=== PATIENT | female | born 1940 | race Caucasian/White ===

== ENCOUNTER 2016-12-28 20:27 | Inpatient (IN) | payer OTHER ==
[~2016-12-28] VITALS: Ht 157.5 cm; Wt 85.2 kg
--- NOTE | 2016-12-29 00:02 | DIAGNOSTIC IMAGING REPORT ---
PROCEDURE: XR RIBS UNILAT W/PA CHEST-RT INDICATION: TRAUMA/INJURY TECHNIQUE: Two views of the right ribs with single PA view chest. COMPARISON: None. FINDINGS: RIGHT RIBS: Probable nondisplaced fracture of the right lateral tenth rib. The rest of the right ribs are normal. CHEST: Lungs are clear. Heart and mediastinum are normal. There are multiple surgical clips in the epigastric region and right upper quadrant (suggest prior gastroplasty and cholecystectomy). Mild to moderate degenerative change of the thoracic spine. IMPRESSION: 1. Probable fracture of the right lateral tenth rib. 2. Probable gastroplasty and cholecystectomy. 3. Otherwise negative chest. 4. Findings discussed with Dr. Alex Orourke.
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
--- NOTE | 2016-12-29 01:16 | ED ORDER SUMMARY ---
..... Patient: JAYCE VANG OrderSheet [facility] VisitID: [id number] [place] [address] 76y, F Registration Date/Time: 12/28/2016 ORDER SHEET Weight: 81.6 kg (estimated) Allergies: Shellfish-derived Products, Prozac, Zoloft GENERAL ORDERS: CBC w Diff Urgent (21:12/28/2016 Petrona Chen) (Ack 21:30 SRedmond) (22:10 EHassan R.N.) CMP Urgent (:12/28/2016 Petrona Chen) (Ack 21:30 SRedmond) (22:10 EHassan R.N.) UA-Culture if indicated Urgent (:12/28/2016 Petrona Chen) (Ack 21:30 SRedmond) (22:24 EHassan R.N.) PT with INR Urgent (:12/28/2016 Petrona Chen) (Ack 21:30 SRedmond) (22:10 EHassan R.N.) Urine Drug Screen Urgent (:12/28/2016 Petrona Chen) (Ack 21:30 SRedmond) (22:24 EHassan R.N.) TSH Urgent (21:12/28/2016 Petrona Chen) (Ack 21:30 SRedmond) (22:10 EHassan R.N.) Acetaminophen Level Urgent (21:12/28/2016 Petrona Chen) (Ack 21:30 SRedmond) (22:10 EHassan R.N.) Salicylate Level Urgent (:12/28/2016 Petrona Chen) (Ack 21:30 SRedmond) (22:10 EHassan R.N.) Ethyl Alcohol Urgent (:12/28/2016 Petrona Chen) (Ack 21:30 SRedmond) (22:10 EHassan R.N.) Pulse oximeter (21:12/28/2016 Petrona Chen) (Ack 21:30 SRedmond) (22:10 EHassan R.N.) Ribs Unilat w PA Chest Right Urgent (22:12 12/28/2016 Petrona Chen) (Ack 22:33 SRedmond) (22:50 MCabell) MEDICATION ORDERS: IV FLUIDS: IV Saline Lock (21:14 12/28/2016 Petrona Chen) (22:10 EHassamayelin R.N.) IV NS : initial bolus 1000 mL (1000 mL/hr), then none - for X1 (NOW) (22:11 12/28/2016 Petrona Chen) (22:21 EHassamayelin R.N.) Ceftriaxone IV 2 gm/50mL (NOW) (00:06 12/29/2016 Petrona Chen) (0:15 TBowtonie R.N.) Ativan IV 1 mg (HIGH ALERT MEDICATION, NOW) (01:50 12/29/2016 Petrona Chen) (1:55 TBowen R.N.) ORDER SHEET NOTES: [Electronically signed by Annette Yoo R.N. (02:03 12/29/2016)] [Electronically signed by Alex Orourke Dr. (21:45 01/02/2017)] [Electronically locked/signed by Annette Yoo R.N. (02:03 12/29/2016)]
--- NOTE | 2016-12-29 01:16 | ED ORDER SUMMARY ---
..... Patient: JAYCE VANG OrderSheet [facility] VisitID: [id number] [place] [address] 76y, F Registration Date/Time: 12/28/2016 ORDER SHEET Weight: 81.6 kg (estimated) Allergies: Shellfish-derived Products, Prozac, Zoloft GENERAL ORDERS: CBC w Diff Urgent (21:12/28/2016 Petrona Chen) (Ack 21:30 SRedmond) (22:10 EHassan R.N.) CMP Urgent (:12/28/2016 Petrona Chen) (Ack 21:30 SRedmond) (22:10 EHassan R.N.) UA-Culture if indicated Urgent (:12/28/2016 Petrona Chen) (Ack 21:30 SRedmond) (22:24 EHassan R.N.) PT with INR Urgent (:12/28/2016 Petrona Chen) (Ack 21:30 SRedmond) (22:10 EHassan R.N.) Urine Drug Screen Urgent (:12/28/2016 Petrona Chen) (Ack 21:30 SRedmond) (22:24 EHassan R.N.) TSH Urgent (21:12/28/2016 Petrona Chen) (Ack 21:30 SRedmond) (22:10 EHassan R.N.) Acetaminophen Level Urgent (21:12/28/2016 Petrona Chen) (Ack 21:30 SRedmond) (22:10 EHassan R.N.) Salicylate Level Urgent (:12/28/2016 Petrona Chen) (Ack 21:30 SRedmond) (22:10 EHassan R.N.) Ethyl Alcohol Urgent (:12/28/2016 Petrona Chen) (Ack 21:30 SRedmond) (22:10 EHassan R.N.) Pulse oximeter (21:12/28/2016 Petrona Chen) (Ack 21:30 SRedmond) (22:10 EHassan R.N.) Ribs Unilat w PA Chest Right Urgent (22:12 12/28/2016 Petrona Chen) (Ack 22:33 SRedmond) (22:50 MCabell) MEDICATION ORDERS: IV FLUIDS: IV Saline Lock (21:14 12/28/2016 Petrona Chen) (22:10 EHassamayelin R.N.) IV NS : initial bolus 1000 mL (1000 mL/hr), then none - for X1 (NOW) (22:11 12/28/2016 Petrona Chen) (22:21 EHassamayelin R.N.) Ceftriaxone IV 2 gm/50mL (NOW) (00:06 12/29/2016 Petrona Chen) (0:15 TBowtonie R.N.) Ativan IV 1 mg (HIGH ALERT MEDICATION, NOW) (01:50 12/29/2016 Petrona Chen) (1:55 TBowen R.N.) ORDER SHEET NOTES: [Electronically signed by Annette Yoo R.N. (02:03 12/29/2016)] [Electronically signed by Alex Orourke Dr. (21:45 01/02/2017)] [Electronically locked/signed by Annette Yoo R.N. (02:03 12/29/2016)]
--- NOTE | 2016-12-29 01:16 | ED CLINICAL REPORT ---
Clinical Report - Physicians/Mid Levels [facility] [address] [place] [address] 12/28/2016 20:28 Patient: JAYCE VANG Time Seen: 2100. Arrived- By private vehicle. Historian- patient and family. Referred by patient's family. HISTORY OF PRESENT ILLNESS Chief Complaint: DEPRESSED and SUICIDAL ATTEMPT. This started today. Has not been eating or sleeping. Has been depressed and exhibited unusual behavior. The symptoms are described as severe. No injury is present. Additional history - recent decline in mood over the past month. friends have recently. Similar symptoms previously: Recent medical care: The patient was seen recently by a health care provider. REVIEW OF SYSTEMS No headache. All systems otherwise negative, except as recorded above. PAST HISTORY See nurses notes. Medications: Nitrofurantoin Oral. Lisinopril Oral. Atorvastatin Calcium Oral. Nyamyc External (Powder [id number] unit/gm). MetFORMIN HCl Oral (Tablet 500 mg) 1 tablet, daily. QUEtiapine Fumarate ER Oral 50mg. Citalopram Hydrobromide Oral (Tablet 20 mg) 1 tablet. BusPIRone HCl Oral 30 mg, 2x a day. Allergies: Prozac. Shellfish-derived Products. Zoloft. SOCIAL HISTORY Alcohol use. No drug use. Has social support. Has place to stay. ADDITIONAL NOTES The nursing notes have been reviewed. PHYSICAL EXAM Vital Signs: 12/28/2016 20:45 BP: 104/56. HR: 96. RR: 16. O2 saturation: 98%. Temp: 98.3 F. Pain level now: 0/10. Blood pressure normal. Oxygen saturation normal. Appearance: Alert. No acute distress. Appearance is normal. Anxious. Eyes: Pupils equal, round and reactive to light. Neck: Normal inspection. Neck supple. CVS: Normal heart rate and rhythm. Heart sounds normal. Respiratory: Breath sounds normal. Chest nontender. Abdomen: Soft and nontender. Skin: Skin warm and dry. Normal skin color. Normal skin turgor. Extremities: Extremities exhibit normal ROM. No lower extremity edema. Psych / Neuro: (affect congruent). Speech normal. Thought process and content normal. Insight and judgement normal. Cranial nerves normal (as tested). No cerebellar findings. No motor deficit. No sensory deficit. Reflexes normal. LABS, X-RAYS, AND EKG Sternum / Ribs X-rays: Normal lung markings present. (possible right 10th rib fracture). The X-rays were independently viewed by me and interpreted by the radiologist. The X-rays were discussed with the radiologist (via pacs an phone). Laboratory Tests: UA-Culture if indicated: (ONIEL: 12/28/2016 23:20) ( [facility] 12/28/2016 23:40) Final results Test Result Flag Units (Reference) URINE COLOR YELLOW URINE APPEARANCE CLEAR URINE GLUCOSE NEGATIVE (NEGATIVE) URINE BILIRUBIN 2+ (NEGATIVE) URINE KETONE 1+ (NEGATIVE) URINE SPECIFIC GRAVITY >= 1.030 (1.010-1.030) URINE PH 5.5 (5.0-8.0) URINE PROTEIN 1+ (NEGATIVE) URINE UROBILINOGEN 0.2 EU/dL (0.2-1.0) URINE NITRITE NEGATIVE (NEGATIVE) URINE BLOOD 2+ (NEGATIVE) URINE LEUK ESTERASE POSITIVE (NEGATIVE) URINE RBC >100 rbc/hpf (0-1) URINE WBC >100 wbc/hpf (0-1) URINE EPITHELIAL CELLS 0-1 EPI/hpf (0-5) URINE BACTERIA MANY (4+) (NONE SEEN) URINE COMMENT CULTURE INDICATED URINE CULTURES ARE SET-UP BASED ON THE FOLLOWING CRITERIA:POSITIVE NITRITEPOSITIVE LEUKOCYTE ESTERASEGREATER THAN 10 WHITE BLOOD CELLSMODERATE (2+) OR GREATER BACTERIA CBC w Diff: (ONIEL: 12/28/2016 22:10) ( [facility] 12/28/2016 22:19) Final results Test Result Flag Units (Reference) WHITE BLOOD COUNT 13.3 H K/uL (4.5-11.5) RED BLOOD COUNT 4.23 M/uL (4.00-5.20) HEMOGLOBIN 11.8 L gm/dL (12.0-16.0) HEMATOCRIT 35.6 L % (36.0-46.0) MEAN CELL VOLUME 84 fL (80-100) MEAN CORPUSCULAR HGB 28 pg (26-34) MEAN CORPUSCULAR HGB CONC 33 g/dL (31-37) RED CELL DISTRIBUTION WIDTH 14.8 % (11.6-14.8) PLATELET COUNT 334 K/uL (150-400) NEUTROPHIL % 73.3 % (50-75) LYMPH % 20.0 L % (25-40) MONO % 6.0 % (3-14) EOSINOPHIL % 0.4 % (0-4) BASOPHIL % 0.3 % (0-2) PT with INR: (ONIEL: 12/28/2016 22:10) ( [facility] 12/28/2016 22:28) Final results Test Result Flag Units (Reference) INR 1.0 (0.8-1.2) Low Intensity Therapy: INR 1.5-2.0 PT range 18.5-23.1Mod.Intensity Therapy: INR 2.0-3.0 PT range 23.1-31.5High Intensity Therapy: INR 2.5-3.5 PT range 27.4-35.5High Intensity Therapy 2: INR 3.0-4.0 PT range 31.5-39.3 Urine Drug Screen: (ONIEL: 12/28/2016 23:20) ( TngRcvd 12/28/2016 23:41) Final results Test Result Flag Units (Reference) AMPHETAMINE/METHAMPHETAMINE NEGATIVE (NEGATIVE) BARBITURATE NEGATIVE (NEGATIVE) BENZODIAZEPINE NEGATIVE (NEGATIVE) CANNABINOID POSITIVE H (NEGATIVE) COCAINE NEGATIVE (NEGATIVE) ECSTASY NEGATIVE (NEGATIVE) METHADONE NEGATIVE (NEGATIVE) OPIATE NEGATIVE (NEGATIVE) The urine drug screen is a qualitative screening test fordrug overdose and abuse. All screen results should beconsidered as presumptive.Drugs screened for are as follows:BenzodiazepinesCocaineAmphetamines/MetamphetaminesTHC (Tetrahydrocannabinol)OpiatesBarbituratesEcstasyMethadonePositive results are unconfirmed. For confirmation, notifythe lab for the specimen to be sent to the reference lab.All confirmations must be performed by a differentmethodology.The ingestion of natural herbal and plant productscontaining Ephedra/Ephedra metabolites can produce in urineone or more substances capable of cross reacting withamphetamine/methamphetamine immunoassays. These testsprovide a preliminary result only. A more specificalternative chemical method must be used to obtain aconfirmed analytical result. Salicylate Level: (ONIEL: 12/28/2016 22:10) ( MsgRcvd 12/28/2016 22:26) Final results Test Result Flag Units (Reference) SALICYLATE <2.8 L mg/dL (2.8-20) CMP: (ONIEL: 12/28/2016 22:10) ( MsgRcvd 12/28/2016 22:44) Final results Test Result Flag Units (Reference) GLUCOSE 134 H mg/dL (70-110) BUN 39 H mg/dL (7-18) CREATININE 1.6 H mg/dL (0.6-1.3) Estimated GFR 33.49 mL/min Estimated GFR- 40.59 mL/min Note: Persistent reduction over 3 months in eGFR<60 mL/min/1.73 m2 defines CKD. Patients with eGFR values>=60 mL/min/1.73 m2 may also have CKD if evidence ofpersistent proteinuria. Additional information may be foundat www.[email or web address].org. SODIUM 137 mmol/L (136-145) POTASSIUM 4.2 mmol/L (3.5-5.1) CHLORIDE 100 mmol/L (98-107) CARBON DIOXIDE 25 mmol/L (21-32) CALCIUM 8.8 mg/dL (8.5-10.1) TOTAL PROTEIN 6.7 g/dL (6.4-8.2) ALBUMIN 3.4 g/dL (3.3-5.0) BILIRUBIN, TOTAL 0.4 mg/dL (0.0-1.0) ALKALINE PHOSPHATASE 65 U/L (46-116) AST (SGOT) 34 U/L (15-37) ALT (SGPT) 57 U/L (12-78) ACETAMINOPHEN < 3 L ug/mL (10-30) ETHYL ALCOHOL <3 L mg/dL (3-10) THYROID STIMULATING HORMONE 1.123 uIU/mL (0.30-3.74) . PROGRESS AND PROCEDURES Course of Care: The patient is a 76 yo female presenting for evaluation of altered mental status and SI. patient not as baseline per family and has changed over the past 2 months or less. Patient with recent admit for UTI. Patient reportedly taking abx but family not entirely sure she she has been doing it. No other acute findings. No signs of trauma. WIll also evalaute if patient needs a psych evaluation. Family and patient are agreeable to work up. Family also concerned about right rib pain from last admit. Patient apparently was helped to the floor on last admit. Small area of ecchymosis. No other findings. Patient with regular respirations. Work up shows patient with significant UTI. Abx given. Because of time course of mental changes, feel patient's conditions primarily due to UTI. There is some possible dementia and situational problems with friends passing away however the UTI is however, significant. Psych was here evaluating another patient and stated they would also need the urine treated if they were to consider the patient for admission. Discussed with patient and family workup, diagnosis, and plan of care. All questions answered. Because the patient has otherwise normal vital signs, patient is stable for the floor. Does not need ICU level of care. Discussed case with hospitalist who will accept the patient. No further recs. Critical care performed (35 minutes). Time is exclusive of separately billable procedures. Time includes: direct patient care, patient reassessment, coordination of patient care, interpretation of data (laboratory data), review of patient's medical records, medical consultation, family consultation regarding treatment decisions and documentation of patient care. Disposition: Admitted to Acute Care. CLINICAL IMPRESSION Non-displaced closed 10th rib fracture altered mental status Urinary tract infection. (Electronically signed by Alex Orourke Dr. 01/02/2017 21:45)
--- NOTE | 2016-12-29 01:16 | ED CLINICAL REPORT ---
Clinical Report - Physicians/Mid Levels [facility] [address] [place] [address] 12/28/2016 20:28 Patient: JAYCE VANG Time Seen: 2100. Arrived- By private vehicle. Historian- patient and family. Referred by patient's family. HISTORY OF PRESENT ILLNESS Chief Complaint: DEPRESSED and SUICIDAL ATTEMPT. This started today. Has not been eating or sleeping. Has been depressed and exhibited unusual behavior. The symptoms are described as severe. No injury is present. Additional history - recent decline in mood over the past month. friends have recently. Similar symptoms previously: Recent medical care: The patient was seen recently by a health care provider. REVIEW OF SYSTEMS No headache. All systems otherwise negative, except as recorded above. PAST HISTORY See nurses notes. Medications: Nitrofurantoin Oral. Lisinopril Oral. Atorvastatin Calcium Oral. Nyamyc External (Powder 203208 unit/gm). MetFORMIN HCl Oral (Tablet 500 mg) 1 tablet, daily. QUEtiapine Fumarate ER Oral 50mg. Citalopram Hydrobromide Oral (Tablet 20 mg) 1 tablet. BusPIRone HCl Oral 30 mg, 2x a day. Allergies: Prozac. Shellfish-derived Products. Zoloft. SOCIAL HISTORY Alcohol use. No drug use. Has social support. Has place to stay. ADDITIONAL NOTES The nursing notes have been reviewed. PHYSICAL EXAM Vital Signs: 12/28/2016 20:45 BP: 104/56. HR: 96. RR: 16. O2 saturation: 98%. Temp: 98.3 F. Pain level now: 0/10. Blood pressure normal. Oxygen saturation normal. Appearance: Alert. No acute distress. Appearance is normal. Anxious. Eyes: Pupils equal, round and reactive to light. Neck: Normal inspection. Neck supple. CVS: Normal heart rate and rhythm. Heart sounds normal. Respiratory: Breath sounds normal. Chest nontender. Abdomen: Soft and nontender. Skin: Skin warm and dry. Normal skin color. Normal skin turgor. Extremities: Extremities exhibit normal ROM. No lower extremity edema. Psych / Neuro: (affect congruent). Speech normal. Thought process and content normal. Insight and judgement normal. Cranial nerves normal (as tested). No cerebellar findings. No motor deficit. No sensory deficit. Reflexes normal. LABS, X-RAYS, AND EKG Sternum / Ribs X-rays: Normal lung markings present. (possible right 10th rib fracture). The X-rays were independently viewed by me and interpreted by the radiologist. The X-rays were discussed with the radiologist (via pacs an phone). Laboratory Tests: UA-Culture if indicated: (ONIEL: 12/28/2016 23:20) ( [facility] 12/28/2016 23:40) Final results Test Result Flag Units (Reference) URINE COLOR YELLOW URINE APPEARANCE CLEAR URINE GLUCOSE NEGATIVE (NEGATIVE) URINE BILIRUBIN 2+ (NEGATIVE) URINE KETONE 1+ (NEGATIVE) URINE SPECIFIC GRAVITY >= 1.030 (1.010-1.030) URINE PH 5.5 (5.0-8.0) URINE PROTEIN 1+ (NEGATIVE) URINE UROBILINOGEN 0.2 EU/dL (0.2-1.0) URINE NITRITE NEGATIVE (NEGATIVE) URINE BLOOD 2+ (NEGATIVE) URINE LEUK ESTERASE POSITIVE (NEGATIVE) URINE RBC >100 rbc/hpf (0-1) URINE WBC >100 wbc/hpf (0-1) URINE EPITHELIAL CELLS 0-1 EPI/hpf (0-5) URINE BACTERIA MANY (4+) (NONE SEEN) URINE COMMENT CULTURE INDICATED URINE CULTURES ARE SET-UP BASED ON THE FOLLOWING CRITERIA:POSITIVE NITRITEPOSITIVE LEUKOCYTE ESTERASEGREATER THAN 10 WHITE BLOOD CELLSMODERATE (2+) OR GREATER BACTERIA CBC w Diff: (ONIEL: 12/28/2016 22:10) ( [facility] 12/28/2016 22:19) Final results Test Result Flag Units (Reference) WHITE BLOOD COUNT 13.3 H K/uL (4.5-11.5) RED BLOOD COUNT 4.23 M/uL (4.00-5.20) HEMOGLOBIN 11.8 L gm/dL (12.0-16.0) HEMATOCRIT 35.6 L % (36.0-46.0) MEAN CELL VOLUME 84 fL (80-100) MEAN CORPUSCULAR HGB 28 pg (26-34) MEAN CORPUSCULAR HGB CONC 33 g/dL (31-37) RED CELL DISTRIBUTION WIDTH 14.8 % (11.6-14.8) PLATELET COUNT 334 K/uL (150-400) NEUTROPHIL % 73.3 % (50-75) LYMPH % 20.0 L % (25-40) MONO % 6.0 % (3-14) EOSINOPHIL % 0.4 % (0-4) BASOPHIL % 0.3 % (0-2) PT with INR: (ONIEL: 12/28/2016 22:10) ( WygRcvd 12/28/2016 22:28) Final results Test Result Flag Units (Reference) INR 1.0 (0.8-1.2) Low Intensity Therapy: INR 1.5-2.0 PT range 18.5-23.1Mod.Intensity Therapy: INR 2.0-3.0 PT range 23.1-31.5High Intensity Therapy: INR 2.5-3.5 PT range 27.4-35.5High Intensity Therapy 2: INR 3.0-4.0 PT range 31.5-39.3 Urine Drug Screen: (ONIEL: 12/28/2016 23:20) ( WygRcvd 12/28/2016 23:41) Final results Test Result Flag Units (Reference) AMPHETAMINE/METHAMPHETAMINE NEGATIVE (NEGATIVE) BARBITURATE NEGATIVE (NEGATIVE) BENZODIAZEPINE NEGATIVE (NEGATIVE) CANNABINOID POSITIVE H (NEGATIVE) COCAINE NEGATIVE (NEGATIVE) ECSTASY NEGATIVE (NEGATIVE) METHADONE NEGATIVE (NEGATIVE) OPIATE NEGATIVE (NEGATIVE) The urine drug screen is a qualitative screening test fordrug overdose and abuse. All screen results should beconsidered as presumptive.Drugs screened for are as follows:BenzodiazepinesCocaineAmphetamines/MetamphetaminesTHC (Tetrahydrocannabinol)OpiatesBarbituratesEcstasyMethadonePositive results are unconfirmed. For confirmation, notifythe lab for the specimen to be sent to the reference lab.All confirmations must be performed by a differentmethodology.The ingestion of natural herbal and plant productscontaining Ephedra/Ephedra metabolites can produce in urineone or more substances capable of cross reacting withamphetamine/methamphetamine immunoassays. These testsprovide a preliminary result only. A more specificalternative chemical method must be used to obtain aconfirmed analytical result. Salicylate Level: (ONIEL: 12/28/2016 22:10) ( MsgRcvd 12/28/2016 22:26) Final results Test Result Flag Units (Reference) SALICYLATE <2.8 L mg/dL (2.8-20) CMP: (ONIEL: 12/28/2016 22:10) ( MsgRcvd 12/28/2016 22:44) Final results Test Result Flag Units (Reference) GLUCOSE 134 H mg/dL (70-110) BUN 39 H mg/dL (7-18) CREATININE 1.6 H mg/dL (0.6-1.3) Estimated GFR 33.49 mL/min Estimated GFR- 40.59 mL/min Note: Persistent reduction over 3 months in eGFR<60 mL/min/1.73 m2 defines CKD. Patients with eGFR values>=60 mL/min/1.73 m2 may also have CKD if evidence ofpersistent proteinuria. Additional information may be foundat [email or web address].org. SODIUM 137 mmol/L (136-145) POTASSIUM 4.2 mmol/L (3.5-5.1) CHLORIDE 100 mmol/L (98-107) CARBON DIOXIDE 25 mmol/L (21-32) CALCIUM 8.8 mg/dL (8.5-10.1) TOTAL PROTEIN 6.7 g/dL (6.4-8.2) ALBUMIN 3.4 g/dL (3.3-5.0) BILIRUBIN, TOTAL 0.4 mg/dL (0.0-1.0) ALKALINE PHOSPHATASE 65 U/L (46-116) AST (SGOT) 34 U/L (15-37) ALT (SGPT) 57 U/L (12-78) ACETAMINOPHEN < 3 L ug/mL (10-30) ETHYL ALCOHOL <3 L mg/dL (3-10) THYROID STIMULATING HORMONE 1.123 uIU/mL (0.30-3.74) . PROGRESS AND PROCEDURES Course of Care: The patient is a 76 yo female presenting for evaluation of altered mental status and SI. patient not as baseline per family and has changed over the past 2 months or less. Patient with recent admit for UTI. Patient reportedly taking abx but family not entirely sure she she has been doing it. No other acute findings. No signs of trauma. WIll also evalaute if patient needs a psych evaluation. Family and patient are agreeable to work up. Family also concerned about right rib pain from last admit. Patient apparently was helped to the floor on last admit. Small area of ecchymosis. No other findings. Patient with regular respirations. Work up shows patient with significant UTI. Abx given. Because of time course of mental changes, feel patient's conditions primarily due to UTI. There is some possible dementia and situational problems with friends passing away however the UTI is however, significant. Psych was here evaluating another patient and stated they would also need the urine treated if they were to consider the patient for admission. Discussed with patient and family workup, diagnosis, and plan of care. All questions answered. Because the patient has otherwise normal vital signs, patient is stable for the floor. Does not need ICU level of care. Discussed case with hospitalist who will accept the patient. No further recs. Critical care performed (35 minutes). Time is exclusive of separately billable procedures. Time includes: direct patient care, patient reassessment, coordination of patient care, interpretation of data (laboratory data), review of patient's medical records, medical consultation, family consultation regarding treatment decisions and documentation of patient care. Disposition: Admitted to Acute Care. CLINICAL IMPRESSION Non-displaced closed 10th rib fracture altered mental status Urinary tract infection. (Electronically signed by Alex Orourke Dr. 01/02/2017 21:45)
--- NOTE | 2016-12-29 01:49 | Progress Note ---
Subjective General Admission History and Physical Examination Patient Name: Krystle Rider Admission Date: December 29, 2016 Primary Care Provider: None Attending Physician: Crispin Garcia M.D. Admitting Physician: Crispin Garcia M.D. Code Status: FULL CODE Room: 207 SUBJECTIVE Historian: Patient's family Reliability: Fair Chief Complaint: Altered mental status, anxiety, suicidal ideation History of Present Illness: The patient is a 76-year-old white female with a significant past medical history of recurrent UTI, hypertension, depression, type 2 diabetes mellitus, hypercholesterolemia, generalized anxiety disorder, who presented to [facility] emergency department on the day of admission secondary to complaints of altered mental status anxiety and suicidal ideation. [facility] ER evaluation was consistent with suicidal ideation, depression, altered mental status, UTI, and hypertension. Secondary to the above, the patient was admitted by Crispin Garcia M.D. for further evaluation and treatment. The history of present illness began approximately 4 weeks prior to admission when the patient exhibited increasing anxiety, intermittent agitation, and depression. Due to the previously mentioned factors, the patient moved from [place] to be with children in the [facility]. She had increasing problems with depression and was subsequently noted to take a medication overdose in a suicide attempt which resulted in hospitalization at [facility] in their psychiatric unit. She was diagnosed with dementia/ depression and UTI. She was apparently discharged approximately one week ago but had persistent symptoms and failed to take antimicrobials for UTI as prescribed. She had increasing depression, anxiety an threatened to injure herself with a knife prompting the family to bring her to [facility] emergency department for further evaluation and treatment. [facility] ER evaluation was consistent with UTI, depression with suicidal ideation. Secondary to the above the patient was admitted for further evaluation and treatment. PAST MEDICAL HISTORY Illnesses: 1. Depression 2. Dementia 3. Hypertension 4. Type 2 diabetes mellitus 5. Hypercholesterolemia 6. Panic/generalized anxiety disorder 7. Recurrent UTI Allergies: 1. Prozac 2. Shellfish Medications: 1. Macrobid 100 mg by mouth twice a day (not taken recently) 2. Lisinopril 10 mg by mouth daily 3. Xanax 0.25 mg by mouth 3 times a day when necessary anxiety 4. Celexa 20 mg by mouth daily 5. Tramadol 50 mg by mouth every 6 hours when necessary pain 6. Ambien 5 mg by mouth daily at bedtime when necessary insomnia 7. Metformin 500 mg by mouth daily at bedtime and 250 mg by mouth every morning Surgery: 1. 2007, cholecystectomy 2. 2009 gastric sleeve 3. 2007 surgery Injuries: 1. No significant Hospitalizations: 1. For above surgery and medical problems FAMILY HISTORY Parents: 1. Father, Segundo, , 81, "old age", 2. Mother, Danii, , 70, "old age" Siblings: 1. Male, Дмитрий, living, 77, diabetes mellitus 2. Female, Mariangel, living, 67, hypertension, back problems Children: 1. Male, William, living, 49, diabetes mellitus, hypertension 2. Male, Anthony, living, 49, hypertension (adopted) 3. Female, Marjan, living, 44, healthy Other significant family history: None SOCIAL HISTORY 1. Marital Status: 2. Synagogue: Religious 3. Education: High school, some college 4. Employment History: [employer], 30 years, retired 5. Occupational health exposures: None HABITS 1. Tobacco: None 2. Drugs: None 3. Alcohol: None 4. Caffeine: One cup coffee, 1 cup tea, 2 cans soft drink per day HEALTH SUPERVISION Item/Test 1. Vision screen: 2015 2. Cholesterol Profile: 2016 3. PSA: Not applicable 4. NELSON: Not applicable 5. FOBT: 2015 6. Blood Glucose: 2016 7. Colonoscopy: 2015 8. History and physical exam: 2015 9. Audiogram: 2015 10. Mammogram: 2013 11. Pap/pelvic exam: 2015 IMMUNIZATIONS: 1. Pneumococcal: 2015 2. Influenza: 2015 3. Tetanus: Unknown ADVANCED DIRECTIVES: 1. Living well: Yes 2. POLST: No 3. Code Status: Full Code 4. Durable Power [employer] Supervisor Health care: No 5. Donor card: Yes REVIEW OF SYSTEMS Remarkable for those things stated in the history of present illness and past medical history. Seventeen point review of system completed with the following notable findings: General: Fatigue, pain, weakness Skin: Rash, dryness Eyes: Dryness, blurred vision, decreased visual acuity requiring corrective lenses Ears: Hearing loss Cardiovascular: Hypertension Genitourinary: Urinary frequency, urinary incontinence, pyuria, poor urinary stream Gastrointestinal: Loss of appetite, heartburn, diarrhea Musculoskeletal: Joint pain, muscle cramping, backache Endocrine: Diabetes mellitus Psychological: Depression, difficulty sleeping, anxiety, loss of interest in enjoyable events Physical Exam Vital Signs / I&Os Vital Signs Date Time Temp Pulse Resp B/P Pulse O2 O2 Flow FiO2 Ox Delivery Rate 12/29 0242 97.5 87 20 121/46 98 Room Air 12/29 0230 Room Air General Appearance Alert, Cooperative, Mild distress HEENT Atraumatic, PERRLA, EOMI, Moist mucous membranes Lungs Clear to auscultation, Normal air movement Neck Supple, No JVD, 2+ carotid pulse wo bruit Cardiovascular Regular rate and rhythm, Normal S1 and S2, Grade 1-2/6 systolic murmur Abdomen Normal bowel sounds, Soft, No tenderness Extremities No cyanosis, No clubbing, No edema Neurological Cranial nerves intact, Strength 5/5 x4 ext's, No lateralizing signs Psych/Mental Status Confused, depressed mood, LAB Results Laboratory Tests 12/28 12/28 12/28 2320 2210 2210 Chemistry Plasma Sodium (136 - 145 mmol/L) 137 Plasma Potassium (3.5 - 5.1 mmol/L) 4.2 Plasma Chloride (98 - 107 mmol/L) 100 CO2 (Enzymatic) (21 - 32 mmol/L) 25 BUN (7 - 18 mg/dL) 39 Creatinine (0.6 - 1.3 mg/dL) 1.6 Est GFR ( Amer) (mL/min) 40.59 Est GFR (Non-Af Amer) (mL/min) 33.49 Glucose (70 - 110 mg/dL) 134 Plasma Calcium (8.5 - 10.1 mg/dL) 8.8 Total Bilirubin (0.0 - 1.0 mg/dL) 0.4 AST (15 - 37 U/L) 34 ALT (12 - 78 U/L) 57 Alkaline Phosphatase (46 - 116 U/L) 65 Total Protein (6.4 - 8.2 g/dL) 6.7 Albumin (3.3 - 5.0 g/dL) 3.4 TSH 3rd Generation (0.30 - 3.74 uIU/mL) 1.123 Coagulation INR (0.8 - 1.2) 1.0 Hematology WBC (4.5 - 11.5 K/uL) 13.3 RBC (4.00 - 5.20 M/uL) 4.23 Hgb (12.0 - 16.0 gm/dL) 11.8 Hct (36.0 - 46.0 %) 35.6 MCV (80 - 100 fL) 84 MCH (26 - 34 pg) 28 RDW (11.6 - 14.8 %) 14.8 Neut % (Auto) (50 - 75 %) 73.3 Lymph % (Auto) (25 - 40 %) 20.0 Kane % (Auto) (3 - 14 %) 6.0 Eos % (Auto) (0 - 4 %) 0.4 Baso % (Auto) (0 - 2 %) 0.3 Plt Count, EDTA (150 - 400 K/uL) 334 PUBS MCHC (31 - 37 g/dL) 33 Toxicology Salicylates (2.8 - 20 mg/dL) <2.8 Urine Opiates Screen (NEGATIVE) NEGATIVE Urine Methadone Screen (NEGATIVE) NEGATIVE Acetaminophen (10 - 30 ug/mL) < 3 Ur Barbiturates Screen (NEGATIVE) NEGATIVE U Amphetamin/Meth Scrn (NEGATIVE) NEGATIVE MDMA (Ecstasy) Screen (NEGATIVE) NEGATIVE U Benzodiazepines Scrn (NEGATIVE) NEGATIVE Urine Cocaine Screen (NEGATIVE) NEGATIVE U Cannabinoids Screen (NEGATIVE) POSITIVE Plasma/Serum Ethyl Alc (3 - 10 mg/dL) <3 Urines Urine Color YELLOW Urine Appearance CLEAR Urine pH (5.0 - 8.0) 5.5 Ur Specific [place] (1.010 - 1.030) >= 1.030 Urine Protein (NEGATIVE) 1+ Urine Ketones (NEGATIVE) 1+ Urine Blood (NEGATIVE) 2+ Urine Nitrite (NEGATIVE) NEGATIVE Urine Bilirubin (NEGATIVE) 2+ Urine Urobilinogen (0.2 - 1.0 EU/dL) 0.2 Ur Leukocyte Esterase (NEGATIVE) POSITIVE Urine RBC (0 - 1 rbc/hpf) >100 Urine WBC (0 - 1 wbc/hpf) >100 Ur Epithelial Cells (0 - 5 EPI/hpf) 0-1 Urine Bacteria (NONE SEEN) MANY (4+) Urine Glucose (NEGATIVE) NEGATIVE Urine Comment CULTURE INDICATED Microbiology Date/Time Procedure - Status Source Growth 12/29 2319 Urine Culture - RECD URINE CATH Imaging Chest X-Ray IMPRESSION: 1. Probable fracture of the right lateral tenth rib. 2. Probable gastroplasty and cholecystectomy. 3. Otherwise negative chest. 4. Findings discussed with Dr. Alex Orourke. Dictated by: MARTIN UREÑA MD D: AFTAB;12/29/16 0002 Assessment and Plan Problem List 1. UTI (urinary tract infection) Plan -Patient presents with findings of UTI with associated leukocytosis -Afebrile -Rocephin 1 g IV daily -Await urine C&S -Monitor. 2. Leukocytosis, unspecified Plan -Patient with leukocytosis associated with UTI. --Treat UTI -Monitor 3. Prolapse of bladder Plan -Patient with history of bladder prolapse and recurrent UTI -Arrange for your urological evaluation at time of discharge 4. Altered mental status, unspecified Plan -Patient with altered mental status -Slightly confused -Very anxious -Depressed mood -Monitor -Recent [facility] scan at [facility] without any significant abnormalities 5. Depression Status Acute Onset Date Unknown Plan -Patient with findings of depression. -Recent suicidal ideation -Recent hospitalization at [facility] for over 1 week with findings of depression, dementia -Continue outpatient SSRI/Seroquel -Monitor -Suicidal precautions -Patient evaluated by mental health in emergency department. Do not feel she is a candidate for inpatient evaluation/treatment. Mental health feels current status secondary to UTI -Feel patient requires psychiatric evaluation at time of discharge with reevaluation of mental health status prior to discharge by mental health professional. 6. Rib fracture Status Acute Onset Date Unknown Plan -Patient presents with findings of suspected right-sided rib fracture -May have happened at the time of admission with near fall being caught by family -Monitor -Review x-rays with radiology in a.m. 7. Anemia Status Acute Onset Date Unknown Plan -Patient presents with findings of anemia -Admission H&H 11.8/35.6 MCV 84 -Check iron profile, B12, folate -Monitor 8. Prerenal azotemia Status Acute Onset Date Unknown Plan -Patient with findings of prerenal azotemia -BUN/creatinine 39/1.6, ratio 9. Diabetes mellitus Status Acute Onset Date Unknown Plan -Patient with history of type 2 diabetes mellitus -Previously treated with metformin -Continue metformin 500 mg by mouth twice a day -Check blood sugar before meals and at bedtime -Check hemoglobin A1c Current status: Fair, unstable Anticipated discharge date: Anticipated discharge in 3-4 days Anticipated discharge placement: Home versus psychiatric hospital Patient care time: Time spent in chart review, patient interview, physical exam, CPOE, and care documentation: 70 minutes Visit to patient today: 2 Complexity of care: High Initial evaluation location: Emergency department E&M Codes Rounding: Inpt-High/[id number]
[2016-12-29 02:42] VITALS: BP 121/46
[2016-12-29] MEDS ORDERED: CITALOPRAM HYDR20 MG PO (06:16)
[2016-12-29] MEDS ORDERED: BUSPIRONE HCL30 MG PO (06:16)
[2016-12-29] MEDS ORDERED: SEROQUEL25 MG PO (06:17)
[2016-12-29] MEDS ORDERED: METFORMIN HCL500 MG PO (06:17)
[2016-12-29 08:41] VITALS: BP 117/53
[2016-12-29 11:10] VITALS: BP 122/40
[2016-12-29 14:22] VITALS: BP 116/51
--- NOTE | 2016-12-29 17:23 | Consultation Report ---
History Chief Complaint Suicidal ideations, UTI, pelvic organ prolapse History of Present Illness 76 yo female admitted for involuntary hold due to suicidal ideation. (See H&P for further details.) During evaluation it was noted that the patient has a long history of suffering from pelvic organ prolapse. This causes difficulty with urination and she often has retention. She reports that she sometimes has to push her fingers into her vagina to help herself urinate. She has never sought treatment for this from a psychiatric nursing aide per her report today. Consult was requested due to the thought that the urinary retention led to the UTI which caused the altered mental status and suicidal ideations. Patient History 1. Altered mental status, unspecified 2. UTI (urinary tract infection) 3. Leukocytosis, unspecified 4. Prolapse of female pelvic organs Social History Denies drugs/alcohol Medications and Allergies Medications Current Medications Sig/Hyacinth Start time Last Medication Dose Route Stop Time Status Admin Ceftriaxone Sodium/ 50 ML QHS 12/29 2100 AC Dextrose IV Nystatin See Dose BID 12/29 1200 AC 12/29 Insts (1) TOP 1246 Citalopram 20 MG DAILY 12/29 899 AC 12/29 Hydrobromide PO 0854 Enoxaparin Sodium 40 MG QAM 12/29 899 AC 12/29 SC 0854 Lisinopril 5 MG BID 12/29 09 AC 12/29 PO 0854 Metformin HCl 500 MG BID 12/29 09 AC 12/29 PO 0854 Acetaminophen 650 MG Q6H PRN 12/29 0315 AC 12/29 PO 1101 Dextrose/Sodium 1,000 ML ASDIRECTED 12/29 031 AC 12/29 Chloride/Electrolyt IV 1554 Lorazepam 1 MG Q4H PRN 12/29 0315 AC PO Ondansetron HCl 4 MG Q6H PRN 12/29 0315 AC IV Quetiapine Fumarate 50 MG QHS 12/29 0315 AC 12/29 PO 0550 Dose Instructions: (1)Nystatin: APPLY TO ABD FOLDS Allergies Coded Allergies: Fluoxetine (From PROZAC) (12/29/16) Sertraline (From Zoloft) (12/29/16) SEE ED NOTES Iodine (12/29/16) Review of Systems Constitutional Denies: Fever, Chills, Sweats, Weakness. Respiratory Denies: Cough. Cardiovascular Denies: Chest Pain. Gastrointestinal Denies: Nausea, Vomiting, Abdominal Pain. Genitourinary Denies: Retention. Physical Exam Vital Signs / I&Os Vital Signs Date Time Temp Pulse Resp B/P Pulse O2 O2 Flow FiO2 Ox Delivery Rate 12/29 1422 98.2 80 20 116/51 99 Room Air 12/29 1110 98.2 91 18 122/40 99 Room Air 0.0 12/29 0845 Room Air 12/29 0841 98.1 84 20 117/53 94 Room Air 0.0 12/29 0242 97.5 87 20 121/46 98 Room Air 12/29 0230 Room Air General Appearance Alert, Cooperative, Mild distress, oriented to person and place HEENT Atraumatic Lungs Normal effort Abdomen Deferred in this setting Pelvic Deferred in this setting Skin Bruises noted on upper extremities Psych/Mental Status Confused Assessment and Plan Problem List 1. Prolapse of female pelvic organs Plan Due to current mental status and location in hospital, will not proceed with evaluation of stage of prolapse. Will need to see patient in an outpatient setting to fully evaluate and treat. Our office does have pessary sizers, however they have not been used in many years. Dr. Healy (urogynecology) treats these problems more frequently that our office, and he actually sees patients in our office on Tuesdays. Recommend appt with Dr. Healy if possible. Patient does know how to "splint" to relieve urinary retention. This can be encouraged when she is more alert as well. Thank you for this consult.
[2016-12-29 18:06] VITALS: BP 123/70
[2016-12-29 22:30] VITALS: BP 118/58
[2016-12-30 03:54] VITALS: BP 111/50
[2016-12-30 06:09] VITALS: BP 129/52
[2016-12-30 11:47] VITALS: BP 137/60
[2016-12-30 15:07] VITALS: BP 155/75
--- NOTE | 2016-12-30 18:00 | Progress Note ---
Subjective General Pt seen and examined. Patient is mentating normally however she usually becomes more confused towards the night. Patient is otherwise stable. Constitutional Denies: Fever, Chills, Sweats, Weakness, Malaise, Other. ENT Denies: Ear Pain, Ear Discharge, Nose Pain, Nasal Discharge, Nasal Congestion, Mouth Pain, Mouth Swelling, Throat Pain, Throat Swelling, Other. Cardiovascular Denies: Chest Pain, Palpitations, Orthopnea, PND, Edema, Light-headedness, Other. Gastrointestinal Denies: Nausea, Vomiting, Abdominal Pain, Diarrhea, Constipation, Melena, Hematochezia, Other. Musculoskeletal Denies: Neck Pain, Shoulder Pain, Arm Pain, Back Pain, Hand Pain, Leg Pain, Foot Pain, Other. Neurological Denies: Weakness, Numbness, Incoordination, Change in speech, Confusion, Seizures, Other. Physical Exam Vital Signs / I&Os Vital Signs Date Time Temp Pulse Resp B/P Pulse O2 O2 Flow FiO2 Ox Delivery Rate 12/30 1507 97.3 82 20 155/75 98 Room Air 0.0 12/30 1147 97.9 86 16 137/60 96 Room Air 0.0 12/30 0830 0.0 12/30 0609 97.5 69 20 129/52 95 Room Air 0.0 12/30 0354 78 22 111/50 98 Room Air 12/29 2230 98.1 80 20 118/58 98 Room Air 12/29 1806 98.1 83 20 123/70 99 Room Air I&O 12/29 0800 04/ 1600 /08 0000 Intake Total 574 360 250 Output Total 0 785 894 Balance 194 -016 -761 General Appearance Alert, Oriented X3, No acute distress HEENT PERRLA, EOMI, Moist mucous membranes Lungs Clear to auscultation, Normal air movement Cardiovascular Regular rate and rhythm, Normal S1 and S2, No murmurs, gallops, rubs Abdomen Soft, No tenderness, No guarding, No hepatosplenomegaly Extremities No cyanosis, No clubbing, No edema, Normal pulses, No tenderness Skin No Breakdown, No Significant Lesions Neurological Normal speech, Normal tone, Cranial nerves intact, No lateralizing signs Psych/Mental Status Mood normal, Confused Assessment and Plan Problem List 1. UTI (urinary tract infection) Plan - will c/w antibioitics - her mentation correlates to the improvment of her infection - will continue with antibiotics - will continue with suicide precautions 2. Altered mental status, unspecified Plan - improving however will continue to monitor throughout the day - pt continually - for agitation 3. Prolapse of female pelvic organs Plan - obgyn saw the patient - unable to fix prolapse secondary to lack of materials - suggesting out patient managment 4. Diabetes mellitus Status Acute Onset Date Unknown Plan - will continue with sliding scale coverage - pt should be on consisten carbohydrate diet
[2016-12-30 21:37] VITALS: BP 131/66
[2016-12-31 03:05] VITALS: BP 146/72
[2016-12-31 07:38] VITALS: BP 145/66
[2016-12-31 13:29] VITALS: BP 156/74
[2016-12-31 17:45] VITALS: BP 153/79
--- NOTE | 2016-12-31 18:18 | Progress Note ---
Subjective General This patient has been admitted for problems with question of urinary tract infection with a history of vaginal prolapse developing relatively recently. She also has had problems with confusion and agitation. She has been very restless and at times self harm. She has been on citalopram and Seroquel and Haldol. These haven't been effective in controlling her agitation and thoughts of self-harm. She was more out of control issues and evening. She seems to be doing perhaps a little bit better today. She does have one on one care with the General Service Technician in the room at all times to make sure she doesn't herself. She does not recall ever being on Abilify. She does have underlying diabetes and hypertension. Her change in mental status has been quite out of the norm for her and much worse than she has had in the past. Constitutional Denies: Fever, Chills, Sweats. Eyes Denies: Pain, Vision Change. ENT Denies: Other (no ENT issues). Cardiovascular Denies: Chest Pain, Palpitations, Orthopnea, Edema. Gastrointestinal Denies: Vomiting, Abdominal Pain, Diarrhea. Genitourinary Other (has Post catheter in due to v). Musculoskeletal Denies: Other (no musculoskeletal pain issues). Skin Denies: Rash, Lesions, Bruising. Neurological Other (pyocystis, agitation, self forest). Physical Exam Vital Signs / I&Os Vital Signs Date Time Temp Pulse Resp B/P Pulse O2 O2 Flow FiO2 Ox Delivery Rate 12/31 1745 98.2 88 18 153/79 96 Room Air 12/31 1329 98.1 81 18 156/74 96 Room Air 0.0 12/31 0738 98.6 76 18 145/66 96 Room Air 0.0 12/31 0305 97.9 72 16 146/72 95 Room Air 0.0 12/31 0044 Room Air 0.0 12/30 2137 98.1 70 20 131/66 97 Room Air 0.0 I&O 12/30 0800 12/30 1600 12/31 0000 Intake Total 120 90 600 Output Total 4209 610 3859 Balance -6696 -607 -730 General Appearance Alert, Mild distress, patient currently not agitated. Not precisely sure of date or hospital. She has had paranoid thoughts throughout the night and earlier this morning. Currently she is cooperative and not feeling threatened. HEENT Moist mucous membranes Lungs Clear to auscultation, Normal air movement Breasts discharge noted by nurse from one of the breasts. This may require further evaluation. Cardiovascular Regular rate and rhythm, Normal S1 and S2, No murmurs, gallops, rubs Abdomen Normal bowel sounds, Soft, No tenderness, No guarding Extremities No edema, Normal pulses Skin No Rashes, No Breakdown Neurological Normal gait, Normal speech, Normal tone, No lateralizing signs Psych/Mental Status some paranoid thinking and slight confusion and disorientation at times. LAB Results Laboratory Tests 12/31 613 Chemistry Plasma Sodium (136 - 145 mmol/L) 140 Plasma Potassium (3.5 - 5.1 mmol/L) 4.6 Plasma Chloride (98 - 107 mmol/L) 108 CO2 (Enzymatic) (21 - 32 mmol/L) 24 BUN (7 - 18 mg/dL) 6 Creatinine (0.6 - 1.3 mg/dL) 0.9 Est GFR ( Amer) (mL/min) >60 Est GFR (Non-Af Amer) (mL/min) >60 Glucose (70 - 110 mg/dL) 128 Plasma Calcium (8.5 - 10.1 mg/dL) 8.1 Total Bilirubin (0.0 - 1.0 mg/dL) 0.1 AST (15 - 37 U/L) 16 ALT (12 - 78 U/L) 34 Alkaline Phosphatase (46 - 116 U/L) 57 Total Protein (6.4 - 8.2 g/dL) 5.5 Albumin (3.3 - 5.0 g/dL) 2.5 Hematology WBC (4.5 - 11.5 K/uL) 9.7 RBC (4.00 - 5.20 M/uL) 3.92 Hgb (12.0 - 16.0 gm/dL) 11.0 Hct (36.0 - 46.0 %) 33.7 MCV (80 - 100 fL) 86 MCH (26 - 34 pg) 28 RDW (11.6 - 14.8 %) 15.3 Neut % (Auto) (50 - 75 %) 62.6 Lymph % (Auto) (25 - 40 %) 27.2 [place] % (Auto) (3 - 14 %) 6.4 Eos % (Auto) (0 - 4 %) 1.7 Baso % (Auto) (0 - 2 %) 2.1 Plt Count, EDTA (150 - 400 K/uL) 276 PUBS MCHC (31 - 37 g/dL) 33 Assessment and Plan Problem List 1. UTI (urinary tract infection) Plan Patient continues with indwelling Post catheter. Urine culture is growing out yeast terms which are probably a contaminant. Urinalysis will be repeated tomorrow. Continue with indwelling Post catheter for now to keep bladder emptying. 2. Altered mental status, unspecified Plan Patient seems to have a significant problem with depression and some paranoid thinking. She will continue his citalopram and will have Abilify added to regimen in addition to the cervical at bedtime. Mental health vibration is planned for Sunday, January 01 provided medical conditions are stable. 3. Diabetes mellitus Status Acute Onset Date Unknown Plan Blood sugars are in the low 100s to upper 100s. No excessively low blood sugars. Continue with current metformin dose and with sliding scale insulin. 4. Prolapse of female pelvic organs Plan Continue with Post catheter. Definitive treatment will need to be done by uro- veneer glue jointer feedback once patient's mental status has stabilized. 5. Nipple discharge Plan Nipple discharge noted by nursing staff. This should be made with the care of a breast exam and patient may need a mammogram if this has not been done recently. E&M Codes Rounding: Inpt-Moderate/[id number]
[2016-12-31 22:12] VITALS: BP 146/74
[2017-01-01 03:57] VITALS: BP 128/62
[2017-01-01 07:50] VITALS: BP 146/76
--- NOTE | 2017-01-01 09:21 | Progress Note ---
Subjective General Brief Hx: The patient is a 76-year-old white female with a significant past medical history of recurrent UTI, hypertension, depression, type 2 diabetes mellitus, hypercholesterolemia, generalized anxiety disorder, who presented to [facility] emergency department on the day of admission secondary to complaints of altered mental status anxiety and suicidal ideation. The history of present illness began approximately 4 weeks prior to admission when the patient exhibited increasing anxiety, intermittent agitation, and depression. Due to the previously mentioned factors, the patient moved from [place] to be with children in the [facility]. She had increasing problems with depression and was subsequently noted to take a medication overdose in a suicide attempt which resulted in hospitalization at [facility] in their psychiatric unit. She was diagnosed with dementia/ depression and UTI. She was apparently discharged approximately one week ago but had persistent symptoms and failed to take antimicrobials for UTI as prescribed. She had increasing depression, anxiety an threatened to injure herself with a knife prompting the family to bring her to [facility] emergency department for further evaluation and treatment. [facility] ER evaluation was consistent with UTI, depression with suicidal ideation. Secondary to the above the patient was admitted for further evaluation and treatment. Currrently: Patient is calm and the sitter in the room states that she is doing ok. Is cooperative. Denies self harm. States that she has lots of pain in the perineal region. Hx of prolapse. When she stands up her vaginal region prolapses out. States that this causes lots of pain. Physical Exam Vital Signs / I&Os Vital Signs Date Time Temp Pulse Resp B/P Pulse O2 O2 Flow FiO2 Ox Delivery Rate 01/01 0750 98.4 84 16 146/76 94 Room Air 0.0 01/01 0357 97.0 75 23 128/62 94 Room Air 0.0 01/01 0303 20 01/01 0147 0.0 12/31 2212 98.1 74 18 146/74 98 Room Air 12/31 1745 98.2 88 18 153/79 96 Room Air 12/31 1550 0.0 12/31 1329 98.1 81 18 156/74 96 Room Air 0.0 I&O 01/01 0000 12/31 1600 12/31 0800 Intake Total 2262 480 7236 Output Total 1000 1450 1250 Balance 1262 -970 5986 General Appearance Alert, Cooperative HEENT Normal exam Lungs Clear to auscultation, Normal air movement Cardiovascular Regular rate and rhythm Abdomen Soft, No tenderness Pelvic has a large what feels like vaginal/rectal prolapse with coughing. Extremities tr edema bilaterally Assessment and Plan Problem List 1. Prolapse of female pelvic organs Plan Will have patient see urogynecology either as consult if able inpatient or outpatient. 2. Altered mental status, unspecified Plan Has been doing ok and working on d/c planning. 3. Nipple discharge Plan Denies any history of nipple d/c. Has likely been with some issues related to the antipsychotics/ psych meds. 4. UTI (urinary tract infection) Plan ? related to prolapse issues vs chronic.
--- NOTE | 2017-01-01 09:21 | Progress Note ---
Subjective General Brief Hx: The patient is a 76-year-old white female with a significant past medical history of recurrent UTI, hypertension, depression, type 2 diabetes mellitus, hypercholesterolemia, generalized anxiety disorder, who presented to [facility] emergency department on the day of admission secondary to complaints of altered mental status anxiety and suicidal ideation. The history of present illness began approximately 4 weeks prior to admission when the patient exhibited increasing anxiety, intermittent agitation, and depression. Due to the previously mentioned factors, the patient moved from [place] to be with children in the [facility]. She had increasing problems with depression and was subsequently noted to take a medication overdose in a suicide attempt which resulted in hospitalization at [facility] in their psychiatric unit. She was diagnosed with dementia/ depression and UTI. She was apparently discharged approximately one week ago but had persistent symptoms and failed to take antimicrobials for UTI as prescribed. She had increasing depression, anxiety an threatened to injure herself with a knife prompting the family to bring her to [facility] emergency department for further evaluation and treatment. [facility] ER evaluation was consistent with UTI, depression with suicidal ideation. Secondary to the above the patient was admitted for further evaluation and treatment. Currrently: Patient is calm and the sitter in the room states that she is doing ok. Is cooperative. Denies self harm. States that she has lots of pain in the perineal region. Hx of prolapse. When she stands up her vaginal region prolapses out. States that this causes lots of pain. Physical Exam Vital Signs / I&Os Vital Signs Date Time Temp Pulse Resp B/P Pulse O2 O2 Flow FiO2 Ox Delivery Rate 01/01 0750 98.4 84 16 146/76 94 Room Air 0.0 01/01 0357 97.0 75 23 128/62 94 Room Air 0.0 01/01 0303 20 01/01 0147 0.0 12/31 2212 98.1 74 18 146/74 98 Room Air 12/31 1745 98.2 88 18 153/79 96 Room Air 12/31 1550 0.0 12/31 1329 98.1 81 18 156/74 96 Room Air 0.0 I&O 01/01 0000 12/31 1600 12/31 0800 Intake Total 2262 480 7236 Output Total 1000 1450 1250 Balance 1262 -970 5986 General Appearance Alert, Cooperative HEENT Normal exam Lungs Clear to auscultation, Normal air movement Cardiovascular Regular rate and rhythm Abdomen Soft, No tenderness Pelvic has a large what feels like vaginal/rectal prolapse with coughing. Extremities tr edema bilaterally Assessment and Plan Problem List 1. Prolapse of female pelvic organs Plan Will have patient see urogynecology either as consult if able inpatient or outpatient. 2. Altered mental status, unspecified Plan Has been doing ok and working on d/c planning. 3. Nipple discharge Plan Denies any history of nipple d/c. Has likely been with some issues related to the antipsychotics/ psych meds. 4. UTI (urinary tract infection) Plan ? related to prolapse issues vs chronic.
[2017-01-01 11:17] VITALS: BP 151/80
[2017-01-01 14:10] VITALS: BP 169/80
[2017-01-01 18:40] VITALS: BP 152/64
[2017-01-01 22:20] VITALS: BP 107/55
--- NOTE | 2017-01-02 00:01 | Consultation Report ---
History Chief Complaint Chief Complaint = genital prolapse; Secondary Complaints urinary incontinence; feeling of incomplete emptying of bladder; History of Present Illness 76 yo female admitted for involuntary hold due to suicidal ideation. During evaluation it was noted that the patient has a long history of suffering from pelvic organ prolapse. This causes difficulty with urination and she often has retention. She reports that she sometimes has to push her fingers into her vagina to help herself urinate. She has never sought treatment for this from a cloth reeler. A Operational Risk Consultant consult was requested due to the thought that the urinary retention led to the UTI which caused the altered mental status and suicidal ideations. Dr. Ness saw the patient on 12/29/16 who suggested the following: "Due to current mental status and location in hospital, will not proceed with evaluation of stage of prolapse. Will need to see patient in an outpatient setting to fully evaluate and treat. Our office does have pessary sizers, however they have not been used in many years. Dr. Healy (urogynecology) treats these problems more frequently that our office, and he actually sees patients in our office on Tuesdays. Recommend appt with Dr. Healy if possible. Patient does know how to "splint" to relieve urinary retention. This can be encouraged when she is more alert as well." Pelvic Organ Prolapse The patient has had a history of prolapse for several years. Prolapse symptoms include: pressure or heaviness, a feeling of a lump in the vagina, protrusion of tissue outside the vagina, the need to manually reduce the prolapse to void at times. She has not tried a pessary. Incontinence The patient has had urinary incontinence for several years. The incontinence is mostly urgency incontinence. The patient uses a number of pads a day. No use of overactive bladder meds in the past. Bladder irritants include: Caffeine: One cup coffee, 1 cup tea, 2 cans soft drink per day Voiding Dysfunction The patient has had voiding dysfunction symptoms. Voiding dysfunction symptoms include intermittent feeling of incomplete emptying, that requires occasional manual reduction of prolapse to empty. Bowel: Colonoscopy: 2016 Recurrent UTI Reported hx of urinary tract infection. The urine culture collected in the ER just prior to admission grew hiren, which was thought to be a contaminant. Previously used Macrobid. Past Medical History recurrent UTI, hypertension, depression, type 2 diabetes mellitus, hypercholesterolemia, generalized anxiety disorder 1. Depression 2. Dementia 3. Hypertension 4. Type 2 diabetes mellitus 5. Hypercholesterolemia 6. Panic/generalized anxiety disorder 7. Recurrent UTI Sexual History no longer sexually active Current Medications Home meds at time of admission: Lisinopril Oral. Atorvastatin Calcium Oral. Nyamyc External (Powder [id number] unit/gm). MetFORMIN HCl Oral (Tablet 500 mg) 1 tablet, daily. QUEtiapine Fumarate ER Oral 50mg. Citalopram Hydrobromide Oral (Tablet 20 mg) 1 tablet. BusPIRone HCl Oral 30 mg, 2x a day. Allergies: Prozac. Shellfish-derived Products. Zoloft. Surgery: Arthroscopy. Cholecystectomy. Gastric sleeve. Oophorectomy Social History Behavioral History: no tobacco use; Smoking Status Findings Only-You must use one of the findings: not a current every day smoker; Other Smoker Findings for CQM Measure: not smoking; Alcohol: no history of alcohol use; Drug Use: no drug use; Other Demographic Never smoker. No alcohol use or drug use. No infectious disease exposure. No drug use. Has social support. Has place to stay. Her son is a brick sorter. She alternates her stay between [facility] and [place]. 1. Marital Status: 2. Buddhist: Rastafarian 3. Education: High school, some college 4. Employment History: [employer], 30 years, retired 5. Occupational health exposures: None Family History Parents: 1. Father, Segundo, , 81, "old age", 2. Mother, Danii, , 70, "old age" Siblings: 1. Male, Дмитрий, living, 77, diabetes mellitus 2. Female, Mariangel, living, 67, hypertension, back problems Children: 1. Male, William, living, 49, diabetes mellitus, hypertension 2. Male, Anthony, living, 49, hypertension (adopted) 3. Female, Marjan, living, 44, healthy diabetes mellitus; systemic HTN; Review of Systems Systemic Symptoms: feeling fatigued; no fever; no recent weight loss; no recent weight gain; Head Symptoms: no headache; ENT Symptoms: no sinus pain; hearing loss; no sore throat; no voice disturbance; Cardiovascular Symptoms: no chest pain; no palpitations; no edema; Pulmonary Symptoms: no shortness of breath; no cough; GI Symptoms: no anorexia; no nausea; no vomiting; Symptoms: no vaginal discharge; Endocrine Symptoms: no heat intolerance; no cold intolerance; no easy bleeding; no easy bruisability; Musculoskeletal Symptoms: back pain; muscle aches; joint pain localized to one or more joints ; Neurological Symptoms: no memory loss; no paralysis; no numbness; no seizure; Psychological Symptoms: anxiety; depressed; Skin Symptoms: no breast pain; rash; no varicose veins Patient History 1. Prolapse of female pelvic organs Social History see above Medications and Allergies Medications Current Medications Sig/Hyacinth Start time Last Medication Dose Route Stop Time Status Admin Calcium Carbonate 500 MG Q2H PRN 01/01 1000 AC 01/01 PO 1935 Aripiprazole 2.5 MG DAILY 12/31 1245 AC 01/01 PO 0757 Insulin Human Lispro See Dose ACHS 12/30 1630 AC 01/01 Insts (1) SC 2101 Ceftriaxone Sodium/ 50 ML QHS 12/29 2100 AC 01/01 Dextrose IV 2044 Haloperidol Lactate 2.5 MG Q6HR PRN 12/29 1915 AC 12/31 IM 1804 Nystatin See Dose BID 12/29 1200 AC 01/01 Insts (2) TOP 2101 Citalopram 20 MG DAILY 12/29 09 AC 01/01 Hydrobromide PO 075 Enoxaparin Sodium 40 MG QAM 12/29 09 AC 01/01 SC 0756 Lisinopril 5 MG BID 12/29 09 AC 01/01 PO 204 Metformin HCl 500 MG BID 12/29 09 AC 01/01 PO 204 Acetaminophen 650 MG Q6H PRN 12/29 0315 AC 01/01 PO 1827 Dextrose/Sodium 1,000 ML ASDIRECTED 12/29 314 AC 01/01 Chloride/Electrolyt IV 1028 Lorazepam 1 MG Q4H PRN 12/29 031 AC 01/01 PO 194 Ondansetron HCl 4 MG Q6H PRN 12/29 0315 AC 01/01 IV 2219 Quetiapine Fumarate 50 MG QHS 12/29 031 AC 01/01 PO 204 Dose Instructions: (1)Insulin Human Lispro: LOW DOSE: ACCUCHECK AND SLIDING SCALE >>To change sliding scale DISCONTINUE this order and enter a NEW order. Thanks< (2)Nystatin: APPLY TO ABD FOLDS Allergies Coded Allergies: Fluoxetine (From PROZAC) (12/29/16) Sertraline (From Zoloft) (12/29/16) SEE ED NOTES Shellfish Allergy (01/01/17) Iodine (12/29/16) Review of Systems Other General Appearance: general appearance normal; oriented to time, place, and person; Head Exam anicteric sclera; Neck Exam: trachea not deviated; Lung Exam: lungs clear to auscultation bilaterally; Cardiovascular Exam: heart rate and rhythm normal; heart sounds normal; murmur 1 -2/6 systolic murmur; Lymphatic Exam lymph nodes not enlarged; Abdominal Exam: patient not obese; no abdominal distention; bowel sounds normal; abdomen soft; no abdominal muscle guarding; no abdominal tenderness; no abdominal mass; no hepatomegaly; UROGYNECOLOGICAL EXAM external female genitalia normal; cervix normal; uterus normal; no urinary incontinence with heavy cough; vaginal mucosa atrophied; vagina not tender; Urogynecologic Exam II cystocele POPQ Stage 4; uterine prolapse POPQ Stage 4; rectocele POPQ Stage 2; Back Exam: no CVA tenderness Physical Exam Vital Signs / I&Os Vital Signs Date Time Temp Pulse Resp B/P Pulse O2 O2 Flow FiO2 Ox Delivery Rate 01/01 2220 98.2 74 18 107/55 94 Room Air 01/01 1840 98.2 95 20 152/64 96 Room Air 01/01 1550 Room Air 0.0 01/01 1410 97.7 86 20 169/80 97 Room Air 01/01 1117 98.2 79 20 151/80 95 Room Air 0.0 01/01 0750 98.4 84 16 146/76 94 Room Air 0.0 01/01 0357 97.0 75 23 128/62 94 Room Air 0.0 01/01 0303 20 01/01 0147 0.0 I&O 12/31 0800 12/31 1600 01/01 0000 Intake Total 7236 480 2262 Output Total 1250 1450 1000 Balance 5986 -970 1262 Assessment and Plan Problem List 1. Prolapse of female pelvic organs Plan 1. POPQ Stage 4 uterine prolapse and cystocele 2. POPQ Stage 2 rectocele PLAN The patient will think about the option of a pessary vs surgery. However, she has concerns about the cost of treatment, despite reassurances from her son, William, who was present during the counseling. If she decides to have surgery, she would be a candidate for surgical prolapse management in the form of vaginal hysterectomy with possible BSO, anterior repair with biologic graft augmentation. posterior repair with possible biologic graft augmentation. high uterosacral ligament vaginal vault suspension. enterocele repair. An alternative would be a LeFort colpocleisis and perineorrhaphy/levatorplasty (after negative endometrial sampling) as she is no longer sexually active. However, she would require medical/cardiac clearance prior to surgery due to hx of DM. In addition, she would have to have a stable affect and psychiatric status. Conservative management for the patient's urinary incontinence includes:. limiting her fluid intake to 32-64 oz of fluid/day, avoidance of dietary bladder irritants such as coffee, caffeinated beverages, sodas, alcohol and acidic juices. OAB medication in the future only if her post-void residuals are normal. It is reassuring that her PVR today on bladder scan was normal. She should continue with manual reduction of the prolapse to ensure proper bladder emptying. As an outpatient, she will require urodynamic testing and cystoscopic evaluation. I suggest she have a bladder scan BID to check her post-void residual. If the PVR is >150 ml on 2 successive readings, she can be taught intermittent self- catheterization (to be done QID) for have a temporary indwelling catheter. I suggest she have a renal ultrasound to rule out hydronephrosis secondary to advanced prolapse, and to further investigate a hx of recurrent UTI. She may be a good candidate for nightly antibiotic suppression if not on one already. Monurol q10d is a good choice or Septra DS qhs if they do not interact with her meds. I will return tomorrow to see what the patient and her son have decided for her treatment for pelvic prolapse. I will bring a pessary fitting kit; it will take 2 wks for a permanent pessary to arrive which we would then insert in the office setting. Thank you for referring this pleasant patient. A total of 60 minutes was spent, with 10 minutes spent reviewing previous records and >50% spent counselling her face to face. Sincerely, Lenny Healy, urogynecologist 2. Urge incontinence Onset Date Unknown Status Chronic 3. Feeling of incomplete bladder emptying Status Chronic 4. History of recurrent UTIs Status Chronic 5. Diabetes mellitus Onset Date Unknown Status Acute 6. Depression Onset Date Unknown Status Acute
[2017-01-02 01:53] VITALS: BP 150/84
[2017-01-02 06:02] VITALS: BP 141/72
--- NOTE | 2017-01-02 07:22 | Progress Note ---
Subjective General The patient is a 76-year-old white female with a significant past medical history of recurrent UTI, hypertension, depression, type 2 diabetes mellitus, hypercholesterolemia, generalized anxiety disorder, admitted secondary to complaints of altered mental status anxiety and suicidal ideation. Hx 4 weeks prior to admission exhibited increasing anxiety, intermittent agitation, and depression. Recently moved from [place] to be with children in the [facility]. She had increasing problems with depression and was subsequently noted to take a medication overdose in a suicide attempt which resulted in hospitalization at [facility] in their psychiatric unit. She was diagnosed with dementia/depression and UTI. Discharged approximately one week ago but had persistent symptoms and failed to take antimicrobials for UTI as prescribed. She had increasing depression, anxiety an threatened to injure herself with a knife prompting the family to bring her to [facility] emergency department for further evaluation and treatment. [facility] ER evaluation was consistent with UTI, depression with suicidal ideation. Secondary to the above the patient was admitted for further evaluation and treatment. Today: Feeling "better" Patient is calm and the sitter in the room states that she is doing ok. Is cooperative. Denies self harm. Hx lots of pain in the perineal region. Hx of prolapse. When she stands up her vaginal region prolapses out. States that this causes lots of pain. Dr. Healy scheduled rodrigo cinsult, Physical Exam Vital Signs / I&Os Vital Signs Date Time Temp Pulse Resp B/P Pulse O2 O2 Flow FiO2 Ox Delivery Rate 01/02 0602 98.4 79 18 141/72 96 Room Air 0.0 01/02 0344 0.0 01/02 0153 98.4 82 20 150/84 95 Room Air 01/01 2220 98.2 74 18 107/55 94 Room Air 01/01 1840 98.2 95 20 152/64 96 Room Air 01/01 1550 Room Air 0.0 01/01 1410 97.7 86 20 169/80 97 Room Air 01/01 1117 98.2 79 20 151/80 95 Room Air 0.0 01/01 0750 98.4 84 16 146/76 94 Room Air 0.0 I&O 01/01 0800 01/01 1600 01/02 0000 Intake Total 395 660 0524 Output Total 1462 828 460 Balance -958 -498 941 General Appearance Alert, Oriented X3, Cooperative, No acute distress, flat affect. Lungs Clear to auscultation Cardiovascular Regular rate and rhythm Abdomen Soft, No tenderness Extremities No edema Skin No Rashes LAB Results Laboratory Tests 01/01 1510 Urines Urine Color YELLOW Urine Appearance CLEAR Urine pH (5.0 - 8.0) 6.0 Ur Specific [place] (1.010 - 1.030) 1.010 Urine Protein (NEGATIVE) NEGATIVE Urine Ketones (NEGATIVE) NEGATIVE Urine Blood (NEGATIVE) TRACE-INTACT Urine Nitrite (NEGATIVE) NEGATIVE Urine Bilirubin (NEGATIVE) NEGATIVE Urine Urobilinogen (0.2 - 1.0 EU/dL) 0.2 Ur Leukocyte Esterase (NEGATIVE) NEGATIVE Urine RBC (0 - 1 rbc/hpf) 1-3 Urine WBC (0 - 1 wbc/hpf) 0-1 Ur Epithelial Cells (0 - 5 EPI/hpf) 0-1 Urine Bacteria (NONE SEEN) NONE SEEN Urine Glucose (NEGATIVE) TRACE Urine Comment CULT NOT INDICATED Assessment and Plan Problem List 1. Altered mental status, unspecified Plan Flat affect. Stable at this time. 2. UTI (urinary tract infection) Plan Treated. 3. Prolapse of female pelvic organs Plan Consulkt pending 4. Suicidal behavior Plan Placement plan for treatment.
--- NOTE | 2017-01-02 07:22 | Progress Note ---
Subjective General The patient is a 76-year-old white female with a significant past medical history of recurrent UTI, hypertension, depression, type 2 diabetes mellitus, hypercholesterolemia, generalized anxiety disorder, admitted secondary to complaints of altered mental status anxiety and suicidal ideation. Hx 4 weeks prior to admission exhibited increasing anxiety, intermittent agitation, and depression. Recently moved from [place] to be with children in the [facility]. She had increasing problems with depression and was subsequently noted to take a medication overdose in a suicide attempt which resulted in hospitalization at [facility] in their psychiatric unit. She was diagnosed with dementia/depression and UTI. Discharged approximately one week ago but had persistent symptoms and failed to take antimicrobials for UTI as prescribed. She had increasing depression, anxiety an threatened to injure herself with a knife prompting the family to bring her to [facility] emergency department for further evaluation and treatment. [facility] ER evaluation was consistent with UTI, depression with suicidal ideation. Secondary to the above the patient was admitted for further evaluation and treatment. Today: Feeling "better" Patient is calm and the sitter in the room states that she is doing ok. Is cooperative. Denies self harm. Hx lots of pain in the perineal region. Hx of prolapse. When she stands up her vaginal region prolapses out. States that this causes lots of pain. Dr. Healy scheduled rodrigo cinsult, Physical Exam Vital Signs / I&Os Vital Signs Date Time Temp Pulse Resp B/P Pulse O2 O2 Flow FiO2 Ox Delivery Rate 01/02 0602 98.4 79 18 141/72 96 Room Air 0.0 01/02 0344 0.0 01/02 0153 98.4 82 20 150/84 95 Room Air 01/01 2220 98.2 74 18 107/55 94 Room Air 01/01 1840 98.2 95 20 152/64 96 Room Air 01/01 1550 Room Air 0.0 01/01 1410 97.7 86 20 169/80 97 Room Air 01/01 1117 98.2 79 20 151/80 95 Room Air 0.0 01/01 0750 98.4 84 16 146/76 94 Room Air 0.0 I&O 01/01 0800 01/01 1600 01/02 0000 Intake Total 244 263 1188 Output Total 1462 828 460 Balance -958 -498 941 General Appearance Alert, Oriented X3, Cooperative, No acute distress, flat affect. Lungs Clear to auscultation Cardiovascular Regular rate and rhythm Abdomen Soft, No tenderness Extremities No edema Skin No Rashes LAB Results Laboratory Tests 01/01 1510 Urines Urine Color YELLOW Urine Appearance CLEAR Urine pH (5.0 - 8.0) 6.0 Ur Specific [place] (1.010 - 1.030) 1.010 Urine Protein (NEGATIVE) NEGATIVE Urine Ketones (NEGATIVE) NEGATIVE Urine Blood (NEGATIVE) TRACE-INTACT Urine Nitrite (NEGATIVE) NEGATIVE Urine Bilirubin (NEGATIVE) NEGATIVE Urine Urobilinogen (0.2 - 1.0 EU/dL) 0.2 Ur Leukocyte Esterase (NEGATIVE) NEGATIVE Urine RBC (0 - 1 rbc/hpf) 1-3 Urine WBC (0 - 1 wbc/hpf) 0-1 Ur Epithelial Cells (0 - 5 EPI/hpf) 0-1 Urine Bacteria (NONE SEEN) NONE SEEN Urine Glucose (NEGATIVE) TRACE Urine Comment CULT NOT INDICATED Assessment and Plan Problem List 1. Altered mental status, unspecified Plan Flat affect. Stable at this time. 2. UTI (urinary tract infection) Plan Treated. 3. Prolapse of female pelvic organs Plan Consulkt pending 4. Suicidal behavior Plan Placement plan for treatment.
[2017-01-02 12:36] VITALS: BP 138/74
[2017-01-02 14:20] VITALS: BP 144/76
[2017-01-02] MEDS ORDERED: SMZ-TMP DS1 TAB PO (19:03)
[2017-01-02] MEDS ORDERED: ARIPIPRAZOLE5 MG PO (19:04)
--- NOTE | 2017-01-02 19:08 | Provider's Discharge Care Plan ---
Problem, Goal, Plan Problem List 1. Altered mental status, unspecified Goals: Improved health/wellness Instructions: Take meds as directed 2. UTI (urinary tract infection) Goals: Improve disease control Instructions: Take meds as directed 3. Adjustment disorder Goals: Improved health/wellness Instructions: Take meds as directed 4. Suicidal behavior Goals: Improved health/wellness Instructions: Take meds as directed 5. Prolapse of female pelvic organs Goals: Improved health/wellness Instructions: See Dr. Healy as planned. 6. Diabetes mellitus Goals: Improved health/wellness Instructions: Take meds as directed 7. Depression Goals: Improved health/wellness Instructions: Take meds as directed
--- NOTE | 2017-01-02 19:55 | DISCHARGE SUMMARY ---
ADMIT DATE: 12/29/2016 DISCHARGE DATE: 01/02/2017 ADMITTING DIAGNOSES: 1. Urinary tract infection 2. Leukocytosis 3. Bladder prolapse 4. Altered mental status, unspecified 5. Depression 6. Rib fracture 7. Anemia 8. Prerenal azotemia 9. Diabetes mellitus DISCHARGE DIAGNOSES: 1. Urinary tract infection 2. Leukocytosis 3. Bladder prolapse 4. Altered mental status, unspecified 5. Depression 6. Rib fracture 7. Anemia 8. Prerenal azotemia 9. Diabetes mellitus BRIEF HISTORY: The patient presented with the past history remarkable for recurrent UTI, hypertension, depression, type 2 diabetes, hyperlipidemia, generalized anxiety disorder with recent mental status changes, anxiety and suicidal ideation. She had been admitted recently to [facility], was discharged, had worsening and was brought to [facility]. In the emergency department UTI was diagnosed and patient noted to be suicidal. HOSPITAL COURSE: The patient was admitted, placed on IV antibiotics with good results. Consultation was obtained with Dr. Healy regarding prolapse as patient was having marked discomfort from that and was also felt to be a cause of recurrent UTI. Dr. Healy made a plan for definitive treatment, which will be followed up on as an outpatient. Psychological consultation was evaluated and patient was felt to be stable for outpatient management. While in the hospital, she was started on aripiprazole with good results. DISCHARGE INSTRUCTIONS/MEDICATIONS: Disposition: Home. Discharge medications: Sulfamethoxazole DS 1 p.o. q.p.m. suppressive therapy for recurrent UTI, aripiprazole 5 mg 1/2 tablet p.o. daily, buspirone 30 mg 1 p.o. b.i.d., citalopram 20 mg p.o. daily, metformin 500 mg p.o. daily, quetiapine 25 mg 2 p.o. at bedtime. Special instructions: Diet as tolerated. Activity: As tolerated. Follow up with primary care physician , Dr. Aquino on [facility], in 1-2 weeks. Follow up with Dr. Healy after obtaining referral from Dr. Aquino for definitive treatment of prolapse. Followup care for depression , anxiety and adjustment disorder to be obtained through Dr. Aquino's office with counseling.
--- NOTE | 2017-01-02 21:45 | ED MAR SUMMARY ---
..... Medication Administration Record [facility] [address] [place] [address] Patient: JAYCE VANG Visit ID: [id number] 76y, F Weight: 81.6 kg Height/Length: 61 in BMI: 34 ALLERGIES: Zoloft, Prozac, Shellfish-derived Products Start 22:21 12/28/2016 Tanya Michelle R.N., Stop 00:16 12/29/2016 Jay Jerez Medication Administered: IV NS (SALINE), Dose: IV Fluids over 1 hour(s), Rate: 1000 mL/hr, Dispensed: 1000 mL bag, Site: #1 left wrist. Medication Ordered: IV NS : initial bolus 1000 mL (1000 mL/hr), then none - for X1 (NOW). Start 00:15 12/29/2016 Jay Jerez, Stop 00:37 12/29/2016 Jay Jerez Medication Administered: CEFTRIAXONE [IVPB], Dose: 2 gm IVPB over 30 minute(s), Rate: 100 mL/hr, Site: #1 left wrist. Medication Ordered: Ceftriaxone IV 2 gm/50mL (NOW). Given 01:55 12/29/2016 Jay Jerez Medication Administered: ATIVAN [IVP] (LORAZEPAM), Dose: 1 mg IVP over 2 minute(s), Site: #1 left wrist. Medication Ordered: Ativan IV 1 mg (HIGH ALERT MEDICATION, NOW).
--- NOTE | 2017-01-02 21:45 | ED DISCHARGE INSTRUCTIONS ---
Patient: JAYCE VANG General Instructions [facility] VisitID: [id number] [address] [place] [address] 76y, F Registration Date/Time: 12/28/2016 Non-displaced closed 10th rib fracture altered mental status Urinary tract infection. (Electronically signed by Alex Orourke Dr. 01/02/2017 21:45)
--- NOTE | 2017-01-02 21:45 | ED DISCHARGE INSTRUCTIONS ---
Patient: JAYCE VANG General Instructions [facility] VisitID: [id number] [address] [place] [address] 76y, F Registration Date/Time: 12/28/2016 Non-displaced closed 10th rib fracture altered mental status Urinary tract infection. (Electronically signed by Alex Orourke Dr. 01/02/2017 21:45)
--- NOTE | 2017-01-02 21:45 | ED MAR SUMMARY ---
..... Medication Administration Record [facility] [address] [place] [address] Patient: JAYCE VANG Visit ID: [id number] 76y, F Weight: 81.6 kg Height/Length: 61 in BMI: 34 ALLERGIES: Zoloft, Prozac, Shellfish-derived Products Start 22:21 12/28/2016 Tanya Michelle R.N., Stop 00:16 12/29/2016 Jay Jerez Medication Administered: IV NS (SALINE), Dose: IV Fluids over 1 hour(s), Rate: 1000 mL/hr, Dispensed: 1000 mL bag, Site: #1 left wrist. Medication Ordered: IV NS : initial bolus 1000 mL (1000 mL/hr), then none - for X1 (NOW). Start 00:15 12/29/2016 Jay Jerez, Stop 00:37 12/29/2016 Jay Jerez Medication Administered: CEFTRIAXONE [IVPB], Dose: 2 gm IVPB over 30 minute(s), Rate: 100 mL/hr, Site: #1 left wrist. Medication Ordered: Ceftriaxone IV 2 gm/50mL (NOW). Given 01:55 12/29/2016 Jay Jerez Medication Administered: ATIVAN [IVP] (LORAZEPAM), Dose: 1 mg IVP over 2 minute(s), Site: #1 left wrist. Medication Ordered: Ativan IV 1 mg (HIGH ALERT MEDICATION, NOW).
--- NOTE | 2017-01-02 21:46 | ED MED RECONCILIATION SUMMARY ---
Patient: JAYCE VANG Medication Reconciliation Report [facility] VisitID: [id number] [address] [place] [address] 76y, F Registration Date/Time: 12/28/2016 Weight: 81.6 kg Height/Length: 61 in. BMI: 34.0 ALLERGIES: Prozac, Shellfish-derived Products, Zoloft The patient's Home Medications are listed below: THE FOLLOWING MEDICATIONS NEED TO BE RECONCILED: Atorvastatin Calcium Oral BusPIRone HCl Oral 30 mg, 2x a day Citalopram Hydrobromide Oral (20 mg) 1 tablet Lisinopril Oral MetFORMIN HCl Oral (500 mg) 1 tablet, daily Nitrofurantoin Oral Nyamyc External (260344 unit/gm) QUEtiapine Fumarate ER Oral 50mg The source(s) of the original Home Medication information: patient's family member The following Medications were given to the patient in the Emergency Department: IV NS IV Fluids bolus 0, then 1000 mL/hr, administered: 12/28/2016 10:21:00 PM Ceftriaxone [IVPB] IVPB bolus 0, then 2 gm 100 mL/hr, administered: 12/29/2016 12:15:00 AM Ativan [IVP] IVP 1 mg, administered: 12/29/2016 1:55:00 AM The following Medications were prescribed to the patient: None.
--- NOTE | 2017-01-02 21:46 | ED MED RECONCILIATION SUMMARY ---
Patient: JAYCE VANG Medication Reconciliation Report [facility] VisitID: [id number] [address] [place] [address] 76y, F Registration Date/Time: 12/28/2016 Weight: 81.6 kg Height/Length: 61 in. BMI: 34.0 ALLERGIES: Prozac, Shellfish-derived Products, Zoloft The patient's Home Medications are listed below: THE FOLLOWING MEDICATIONS NEED TO BE RECONCILED: Atorvastatin Calcium Oral BusPIRone HCl Oral 30 mg, 2x a day Citalopram Hydrobromide Oral (20 mg) 1 tablet Lisinopril Oral MetFORMIN HCl Oral (500 mg) 1 tablet, daily Nitrofurantoin Oral Nyamyc External (820677 unit/gm) QUEtiapine Fumarate ER Oral 50mg The source(s) of the original Home Medication information: patient's family member The following Medications were given to the patient in the Emergency Department: IV NS IV Fluids bolus 0, then 1000 mL/hr, administered: 12/28/2016 10:21:00 PM Ceftriaxone [IVPB] IVPB bolus 0, then 2 gm 100 mL/hr, administered: 12/29/2016 12:15:00 AM Ativan [IVP] IVP 1 mg, administered: 12/29/2016 1:55:00 AM The following Medications were prescribed to the patient: None.
== END 2017-01-02 20:06 | disposition home or self-care (01) | DRG 690 ==
LOC: ED SRH 20:27 → ACUTE2 SRH 12-29 00:59 → TRANS SRH 12-29 00:59 → ACUTE2 SRH 12-29 02:05
PROVIDERS: ADMIT Internal Medicine
DX: N39.0 Urinary tract infection, site not specified (principal); F05 Delirium due to known physiological condition; S22.31XA Fracture of one rib, right side, initial encounter for closed fracture; F32.9 Major depressive disorder, single episode, unspecified; R39.2 Extrarenal uremia; N81.3 Complete uterovaginal prolapse; R33.8 Other retention of urine; N39.41 Urge incontinence; F41.1 Generalized anxiety disorder; E11.9 Type 2 diabetes mellitus without complications; X58.XXXA Exposure to other specified factors, initial encounter; Y99.8 Other external cause status; I10 Essential (primary) hypertension; D64.9 Anemia, unspecified; Z79.84 Long term (current) use of oral hypoglycemic drugs

== ENCOUNTER 2017-02-01 08:52 | Outpatient (CLI) | payer OTHER ==
[~2017-02-01 08:52] MED LIST: ARIPIPRAZOLE5 MG PO; BUSPIRONE HCL30 MG PO; CITALOPRAM HYDR20 MG PO; METFORMIN HCL500 MG PO; SEROQUEL25 MG PO; SMZ-TMP DS1 TAB PO
--- NOTE | 2017-02-01 11:32 | DIAGNOSTIC IMAGING REPORT ---
PROCEDURE: US KIDNEY/RENAL COMPLETE INDICATION: RETENTION OF URINE TECHNIQUE: Estevez scale and color Doppler sonographic imaging of the kidneys and urinary bladder was obtained. Intrarenal resistive indices were calculated when appropriate. COMPARISON: None. FINDINGS: The right kidney measures 8.7 x 4.2 x 5.3 cm. Normal cortical thickness and echogenicity. No hydronephrosis, cyst, solid mass, or shadowing calculus. Normal color Doppler blood flow throughout the kidney. Resistive indices in the intrarenal parenchymal arteries range from 0.71-0.75 The left kidney measures 9.1 x 4.3 x 5.5 cm Normal cortical thickness and echogenicity. No hydronephrosis, cyst, solid mass, or shadowing calculus. Normal color Doppler blood flow throughout the kidney. Resistive indices in the intrarenal parenchymal arteries range from 0.61-0.72 The filled urinary bladder has a volume of 53 ml and a post void residual of 62 ml The urinary bladder wall is thickened and irregular along the posterior wall. There is a mass that measures 4.6 x 3.9 x 0.8 cm. The left ureteral jet was not well seen. IMPRESSION: 1. Posterior bladder wall mass with adjacent thickening of the bladder wall.
== END 2017-02-01 23:00 ==
LOC: US SRH 08:52
DX: N32.9 Bladder disorder, unspecified (principal)

== ENCOUNTER 2017-02-14 09:56 | Outpatient (CLI) | payer OTHER ==
--- NOTE | 2017-02-14 11:08 | DIAGNOSTIC IMAGING REPORT ---
PROCEDURE: CT PELVIS WITH CONTRAST CLINICAL INDICATION: F/U US,MASS TECHNIQUE: 125 ml of Isovue 300 were injected intravenously and axial images were obtained of the abdomen and pelvis with sagittal and coronal reformations. Delayed scan was also performed. COMPARISON: None. FINDINGS: The partially filled urinary bladder demonstrates mild diffuse circumferential wall thickening and slight urothelial hyperemia diffusely. The posterior wall is irregular, but a focal soft tissue mass is not readily identified. There is trace stranding in the perivesicular fat. There is moderate pelvic floor prolapse. A few thin flat, mildly enlarged pelvic sidewall lymph nodes are present. No bulky pelvic adenopathy. No free fluid. Ureteral caliber and morphology appears normal bilaterally. The distal ureteral insertion is low, within the portion of the prolapse bladder. The appendix is surgically absent. There are surgical changes of anastomoses in the visible proximal colon and adjacent mesentery. Pelvic small bowel loops are normal. Occasional sigmoid diverticulosis. Normal rectum. Distal abdominal aortic calcification and mild calcific atherosclerosis in the pelvic vasculature. The uterus is present and has a normal, age appropriate appearance. Right ovarian tissue appears normal. Left ovary was not identified. There is a small fat containing umbilical hernia. Degenerative endplate changes at the L5-S1 level. IMPRESSION: 1. Circumferential bladder wall thickening and mild posterior wall irregularity. While these changes can be seen in cystitis, correlation with UA is recommended. Wall irregularity can also be seen with heavy trabeculation from bladder outlet obstruction. In the absence of an infectious or inflammatory process, neoplasm should be considered. Cystoscopy is recommended. 2. Moderate pelvic floor prolapse. 3. Status post left oophorectomy. 4. Status post appendectomy and surgical changes to the proximal colon. All CT scans at this facility use dose modulation, iterative reconstruction, and/or weight-based dosing when appropriate to reduce radiation dose to as low as reasonably achievable.
== END 2017-02-14 23:00 ==
LOC: CT SRH 09:56
DX: N32.9 Bladder disorder, unspecified (principal); N81.89 Other female genital prolapse; Z90.722 Acquired absence of ovaries, bilateral; Z90.89 Acquired absence of other organs